=== PATIENT | female | born 1950 | race Two or more races ===

== ENCOUNTER 2023-08-03 03:40 | Emergency (ER) | payer BC ==
[~2023-08-03] VITALS: Ht 157.5 cm; Wt 67.1 kg
[2023-08-03] MEDS ORDERED: ATORVASTATIN CA40 MG PO (03:51)
[2023-08-03] MEDS ORDERED: ZESTRIL5 MG PO (03:51)
[2023-08-03] MEDS ORDERED: METHYLPREDNISOLONE SOD SUCC 125 MG VIAL IV STA (04:39)
[2023-08-03] MEDS ORDERED: HYDROCODONE/CHLORPHEN P-STIREX 5 ML ML PO STA (04:40)
[2023-08-03] MEDS ORDERED: ALBUTEROL SULFATE 3 ML/2.5 MG AMPUL.NEB IH SCH ×2 (04:45→08:00)
[2023-08-03 05:12] LABS: HEMATOCRIT 41.6 % (36.0-45.00); HEMOGLOBIN 14.2 g/dL (12.0-15.00); MEAN CELL VOLUME 87.4 fL (80.00-100.00); MEAN CORPUSCULAR HEMOGLOBIN 29.8 pg (27.00-32.0); MEAN CORPUSCULAR HGB CONC 34.1 g/dl (32.0-36.0); PLATELET COUNT 153 K/uL (150-450); RED BLOOD COUNT 4.76 M/uL (4.00-6.00); RED CELL DISTRIBUTION WIDTH 13.8 % (11.5-14.5)
[2023-08-03 05:54] LABS: ALBUMIN 3.8 gm/dL (3.4-5.0); BILIRUBIN TOTAL 0.61 mg/dL (0.3-1.2); CALCIUM 8.9 mg/dL (8.5-10.1); CREATININE SERUM 0.79 mg/dL (0.55-1.02); GFR 71.74; GLOBULINA 3.7 G/DL (2.4-3.5); POTASSIUM 3.94 mEq/L (3.5-5.1); TOTAL PROTEIN 7.5 gm/dL (6.4-8.2)
[2023-08-03 06:22] LABS: ABG PH 7.465 (7.35-7.45)
[2023-08-03 06:23] LABS: ABG PO2 96.7 mmHg (80-100); ABG pCO2 32.7 mmHg (35-45); SaO2 97.9 %
[2023-08-03 06:25] LABS: BASE EXCESS 0.1 mmol/l; BICARBONATE 23.1 mmol/l (23-25); Tco2 24.1 mmol/l
[2023-08-03 06:26] LABS: o2 21 %
[2023-08-03 06:28] LABS: allen test SATISFACTORY; puncture site RADIAL RIGHT
[2023-08-03] MEDS ORDERED: ALBUTEROL SULFATE 3 ML/2.5 MG AMPUL.NEB IH STA (07:41)
== END 2023-08-03 09:52 | disposition home or self-care (01) ==
LOC: ER 03:40
PROVIDERS: General Practice
DX: J40 Bronchitis, not specified as acute or chronic (principal); I10 Essential (primary) hypertension

== ENCOUNTER 2024-02-13 16:31 | Emergency (ER) | payer BC ==
[~2024-02-13] VITALS: Ht 157.5 cm; Wt 67.6 kg
[~2024-02-13 16:31] MED LIST: ATORVASTATIN CA40 MG PO; ZESTRIL5 MG PO
[2024-02-13] MEDS ORDERED: LISINOPRIL20 MG PO (17:12)
[2024-02-13] MEDS ORDERED: CLONIDINE HCL 0.1 MG TABLET PO ONE (17:45)
[2024-02-13] MEDS ORDERED: KETOROLAC TROMETHAMINE 30 MG VIAL IV ONE (17:45)
[2024-02-13] MEDS ORDERED: ORPHENADRINE CITRATE 30 MG/ML AMPUL IM ONE (17:45)
[2024-02-13 18:15] LABS: HEMATOCRIT 40.7 % (36.0-45.00); HEMOGLOBIN 13.9 g/dL (12.0-15.00); MEAN CELL VOLUME 88.8 fL (80.00-100.00); MEAN CORPUSCULAR HEMOGLOBIN 30.4 pg (27.00-32.0); MEAN CORPUSCULAR HGB CONC 34.2 g/dl (32.0-36.0); PLATELET COUNT 205 K/uL (150-450); RED BLOOD COUNT 4.58 M/uL (4.00-6.00); RED CELL DISTRIBUTION WIDTH 13.9 % (11.5-14.5)
[2024-02-13 18:46] LABS: BILIRUBIN TOTAL 0.42 mg/dL (0.3-1.2); CALCIUM 9.7 mg/dL (8.5-10.1); CREATININE SERUM 0.7 mg/dL (0.55-1.02); GFR 82.49; GLOBULINA 3.1 G/DL (2.4-3.5); POTASSIUM 4.09 mEq/L (3.5-5.1); TOTAL PROTEIN 7.1 gm/dL (6.4-8.2)
[2024-02-13] MEDS ORDERED: NORFLEX100MG PO (20:35)
[2024-02-13] MEDS ORDERED: BUTALBIT-ACETA1 EACH PO (20:35)
[2024-02-13] MEDS ORDERED: FUROsemide 20 MG/2 ML VIAL IV ONE (20:45)
[2024-02-13] MEDS ORDERED: ENALAPRILAT DIHYDRATE 1.25 MG/ML VIAL IV ONE (20:45)
[2024-02-13] MEDS ORDERED: BUTALB/ACETAMINOPHEN/CAFFEINE 1 TAB TABLET PO ONE (20:45)
== END 2024-02-13 22:07 | disposition home or self-care (01) ==
LOC: ER 16:33
PROVIDERS: General Practice
DX: R51.9 Headache, unspecified (principal)